=== PATIENT | female | born 1935 | race Caucasian/White ===

== ENCOUNTER 2020-03-12 13:25 | Outpatient (REF) | payer MEDICARE, SELFPAY ==
[2020-03-12 21:40] LABS: Hemoglobin A1C 6.7 % (3.8-5.6)
[2020-03-12 21:48] LABS: ALT 25 U/L (14-59); AST 25 U/L (15-37); Albumin 3.7 g/dL (3.4-5.0); Alkaline Phosphatase 75 U/L (46-116); Anion Gap 7.2 mmol/L (3-11); BUN 19 mg/dL (7-18); Bilirubin, Total 0.5 mg/dL (0.2-1.0); CO2 30.8 mmol/L (21.0-32.0); CREATININE 0.74 mg/dL (0.55-1.02); Calcium 8.8 mg/dL (8.5-10.1); Chloride 105 mmol/L (98-107); Glucose 166 mg/dL (74-106); Sodium 143 mmol/L (136-145); TSH 1.03 uIU/mL (0.36-3.74); Total Protein 6.4 g/dL (6.4-8.2)
[2020-03-12 22:27] LABS: Vitamin B12 782 pg/mL (193-986)
[2020-03-15 10:40] LABS: Syphilis Serology (RPR) Negative (Negative)
== END 2020-03-12 13:45 ==
LOC: NCHCN 13:25
PROVIDERS: Visit Provider Nurse Practitioner Community Health
DX: E11.9 Type 2 diabetes mellitus without complications (principal); R41.3 Other amnesia
CPT/HCPCS: 80053; 82607; 83036; 84443; 86592

== ENCOUNTER 2020-03-17 13:24 | Outpatient (REF) | payer MEDICARE, SELFPAY ==
[2020-03-17 20:12] LABS: D-Dimer 861 ng/mlFEU (<500)
[2020-03-19 11:04] LABS: Parathyroid Hormone,Intact 85 pg/mL (19-88)
== END 2020-03-17 13:44 ==
LOC: NCHCN 13:24
PROVIDERS: Visit Provider Nurse Practitioner Community Health
DX: M79.662 Pain in left lower leg (principal)
CPT/HCPCS: 83970; 85379

== ENCOUNTER 2020-05-10 13:39 | Outpatient (REF) | payer MEDICARE, SELFPAY ==
[2020-05-10 21:09] LABS: Abs Immature Grans 0.03 10^3/uL (0.0-0.06); Absolute Basophil Count 0.07 10^3/uL (0.0-0.2); Absolute Eosinophil Count 0.26 10^3/uL (0.0-0.7); Absolute Lymphocyte Count 1.83 10^3/uL (1.2-3.4); Absolute Monocyte Count 0.49 10^3/uL (0.1-0.8); Absolute Neutrophil Count 6.05 10^3/uL (1.2-6.7); Basophils % 0.8; HCT 46.7 % (36.0-46.0); HGB 14.7 g/dL (11.2-15.7); Immature Grans % 0.3; MCH 28.9 pg (27.0-33.0); MCHC 31.5 % (32.0-36.0); MCV 91.7 fL (80-95); Monocytes % 5.6; Neutrophils % 69.3; Nucleated RBC 0 %; Platelet Count 214 10^3/uL (130-400); RBC 5.09 10^6/uL (3.93-5.22); RDW 13.6 % (11.7-14.6); RDW-SD 46.3 fL; WBC 8.73 10^3/uL (4.4-10.8)
[2020-05-10 21:38] LABS: ALT 31 U/L (14-59); AST 26 U/L (15-37); Albumin 3.8 g/dL (3.4-5.0); Alkaline Phosphatase 75 U/L (46-116); Anion Gap 6.8 mmol/L (3-11); BUN 24 mg/dL (7-18); Bilirubin, Total 0.5 mg/dL (0.2-1.0); CO2 31.2 mmol/L (21.0-32.0); CREATININE 0.68 mg/dL (0.55-1.02); Calcium 8.9 mg/dL (8.5-10.1); Chloride 106 mmol/L (98-107); Glucose 112 mg/dL (74-106); Potassium 4.2 mmol/L (3.5-5.1); Sodium 144 mmol/L (136-145); Total Protein 6.4 g/dL (6.4-8.2)
[2020-05-10 21:45] LABS: Vitamin D 25 Total 31.4 ng/ml (30-100)
== END 2020-05-10 13:59 ==
LOC: NCHCN 13:39
PROVIDERS: Visit Provider Nurse Practitioner Community Health
DX: R53.81 Other malaise (principal); R53.83 Other fatigue; R60.0 Localized edema; E55.9 Vitamin D deficiency, unspecified
CPT/HCPCS: 80053; 82306; 85025

== ENCOUNTER 2020-08-30 19:12 | Outpatient (REF) | payer OTHER, SELFPAY ==
[2020-08-30 20:31] LABS: COMMENT (LAB VIEW ONLY) 41.04 mg/dL
[2020-08-30 20:54] LABS: Microalb ug/mg Crea 189.3 ug/mg Cr
== END 2020-08-30 19:32 ==
LOC: NCHCN 19:12
PROVIDERS: PCP Nurse Practitioner Community Health; Visit Provider Nurse Practitioner Community Health
DX: E11.9 Type 2 diabetes mellitus without complications (principal)
CPT/HCPCS: 82043; 82570

== ENCOUNTER 2020-09-20 15:21 | Outpatient (REF) | payer OTHER, SELFPAY ==
[2020-09-22 12:29] LABS: COVID-19 RT-PCR UVMMC Result Negative (Negative)
== END 2020-09-20 15:41 ==
LOC: NCHCN 15:21
PROVIDERS: PCP Nurse Practitioner Community Health; Visit Provider Nurse Practitioner Community Health
DX: R53.83 Other fatigue (principal)
CPT/HCPCS: U0003

== ENCOUNTER 2021-01-17 13:47 | Outpatient (REF) | payer OTHER, SELFPAY ==
[2021-01-17 21:15] LABS: Anion Gap 8.1 mmol/L (3-11); BUN 24 mg/dL (7-18); CO2 28.9 mmol/L (21.0-32.0); CREATININE 1.2 mg/dL (0.55-1.02); Calcium 9.1 mg/dL (8.5-10.1); Chloride 106 mmol/L (98-107); Glucose 253 mg/dL (74-106); Potassium 4.5 mmol/L (3.5-5.1); Sodium 143 mmol/L (136-145)
== END 2021-01-17 13:48 | disposition home or self-care (01) ==
LOC: NCHCN 13:47
PROVIDERS: PCP Nurse Practitioner Community Health; Visit Provider Nurse Practitioner Community Health
DX: I10 Essential (primary) hypertension (principal)
CPT/HCPCS: 80048

== ENCOUNTER 2021-02-16 17:02 | Outpatient (REF) | payer OTHER, SELFPAY ==
[2021-02-16 21:44] LABS: Anion Gap 10.6 mmol/L (3-11); BUN 26 mg/dL (7-18); CO2 28.4 mmol/L (21.0-32.0); CREATININE 1.5 mg/dL (0.55-1.02); Calcium 9.8 mg/dL (8.5-10.1); Chloride 104 mmol/L (98-107); Estimated GFR 33.16 (mL/min/1.73m2); Glucose 216 mg/dL (74-106); Potassium 3.6 mmol/L (3.5-5.1); Sodium 143 mmol/L (136-145)
== END 2021-02-16 17:03 | disposition home or self-care (01) ==
LOC: NCHCN 17:02
PROVIDERS: PCP Nurse Practitioner Community Health; Visit Provider Nurse Practitioner Community Health
DX: I10 Essential (primary) hypertension (principal); R79.89 Other specified abnormal findings of blood chemistry
CPT/HCPCS: 80048

== ENCOUNTER 2021-02-23 13:52 | Outpatient (REF) | payer OTHER, SELFPAY ==
[2021-02-23 22:07] LABS: Anion Gap 9.8 mmol/L (3-11); BUN 21 mg/dL (7-18); CO2 29.2 mmol/L (21.0-32.0); CREATININE 1.1 mg/dL (0.55-1.02); Calcium 8.7 mg/dL (8.5-10.1); Chloride 106 mmol/L (98-107); Estimated GFR 47.43 (mL/min/1.73m2); Glucose 136 mg/dL (74-106); Potassium 3.6 mmol/L (3.5-5.1); Sodium 145 mmol/L (136-145)
== END 2021-02-23 13:53 | disposition home or self-care (01) ==
LOC: NCHCN 13:52
PROVIDERS: PCP Nurse Practitioner Community Health
DX: R79.89 Other specified abnormal findings of blood chemistry (principal)
CPT/HCPCS: 80048